=== PATIENT | female | born 1960 | race Caucasian/White ===

== ENCOUNTER 2022-01-24 21:40 | Emergency (ER) | payer OTHER ==
[~2022-01-24] VITALS: Ht 157.5 cm; Wt 68.0 kg
[2022-01-24 21:41] VITALS: BP 109/59
--- NOTE | 2022-01-24 21:48 | NUR ---
PT TAKEN TO BED 5
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
--- NOTE | 2022-01-24 22:28 | NUR ---
Dr. Albert examining patient.
[2022-01-24] MEDS ORDERED: IBUPROFEN 800 MG TAB PO ONE (22:50)
[2022-01-24] MEDS ORDERED: diphenhydrAMINE 50 MG CAP PO ONE (22:50)
[2022-01-24] MEDS ORDERED: LORazepam 1 MG TAB PO ONE (22:50)
--- NOTE | 2022-01-24 22:50 | NUR ---
X-Ray at bedside.
[2022-01-24] MEDS ORDERED: IBUP-2213 PO (23:37)
--- NOTE | 2022-01-24 23:45 | NUR ---
PT APPEARS TO BE RESTING W EYES CLOSED IN SUPINE POSITION W BREATHING EVEN AND UNLABORED. VSS. NAD NOTED, WILL CONTINUE TO MONITOR.
--- NOTE | 2022-01-24 23:54 | NUR ---
PT TAKEN TO CT
--- NOTE | 2022-01-25 00:08 | NUR ---
PT RETURN FROM CT
--- NOTE | 2022-01-25 01:55 | NUR ---
PT APPEARS TO BE RESTING W EYES CLOSED IN SUPINE POSITION W BREATHING EVEN AND UNLABORED. VSS. NAD NOTED, WILL CONTINUE TO MONITOR.
[2022-01-25 02:09] VITALS: BP 128/65
--- NOTE | 2022-01-25 02:09 | NUR ---
Patient discharged with v/s stable. Written and verbal after care instructions given and explained. Patient alert, oriented and verbalized understanding of instructions. Wheel Chair Assisted with to car D/T PT FEELING SLEEPY FROM PO MEDS, PT ABLE TO MOVE FROM WHEELCHAIR TO CAR W MINIMAL ASSISTANCE. All questions addressed prior to discharge. ID band removed. Patient advised to follow up with PMD. Rx of IBUPROFEN given. Patient educated on indication of medication including possible reaction and side effects. Opportunity to ask questions provided and answered. DISCHARGE PAPERWORK SIGNED BY .
== END 2022-01-25 02:09 | disposition home or self-care (01) ==
LOC: MED 21:40
DX: M25.512 Pain in left shoulder (principal); M25.561 Pain in right knee; M25.562 Pain in left knee; R51.9 Headache, unspecified; Z88.6 Allergy status to analgesic agent; Z88.8 Allergy status to other drugs, medicaments and biological substances; Z79.899 Other long term (current) drug therapy; V89.2XXA Person injured in unspecified motor-vehicle accident, traffic, initial encounter; Y93.89 Activity, other specified; Y92.89 Other specified places as the place of occurrence of the external cause; Y99.8 Other external cause status
CPT/HCPCS: 70450; 71045; 73030; 73562; 93005; 99285; Q0092; Q0163